=== PATIENT | male | born 1970 | race Caucasian/White ===

== ENCOUNTER 2018-03-22 21:41 | Emergency (ER) | payer BC ==
[~2018-03-22] VITALS: Ht 188 cm; Wt 69.4 kg
[2018-03-22] MEDS ORDERED: IBUP600 PO (23:17)
[2018-03-22] MEDS ORDERED: Norco 5-325 Ta1 EACH PO (23:17)
[2018-03-22] MEDS ORDERED: Zantac150 MG PO (23:23)
[2018-03-22] MEDS ORDERED: PANT20 PO (23:24)
== END 2018-03-22 23:43 | disposition home or self-care (01) ==
LOC: ER 21:41
DX: S62.351A Nondisplaced fracture of shaft of second metacarpal bone, left hand, initial encounter for closed fracture (principal); W01.198A Fall on same level from slipping, tripping and stumbling with subsequent striking against other object, initial encounter
CPT/HCPCS: 29125; 73130; 99283